=== PATIENT | male | born 1950 | race Caucasian/White ===

== ENCOUNTER 2018-12-25 08:34 | Emergency (ER) | payer BC, MEDICARE ==
--- NOTE | 2018-12-25 09:34 | RAD ---
ONE VIEW CHEST: History: Chest pain Comparison: None. FINDINGS: Normal cardiac silhouette. Pulmonary vessels and hilum are normal. Costophrenic angles are clear. No masses or consolidation. Calcified granuloma of the right midlung. No pneumothorax or osseous abnorma lities. IMPRESSION: No acute cardiopulmonary process. POS: H
[2018-12-25 10:17] LABS: #Basophils 0.1 thou/uL (0.0-0.2); #Eosinphils 0.1 thou/uL (0.0-0.7); #Lymphocytes 1.5 thou/uL (1.20-3.40); #Monocytes 0.6 thou/uL (0.11-0.59); #Neutrophils 5.6 thou/uL (1.40-6.50); %Basophils 0.8 % (0.0-1.0); %Eosinophils 0.7 % (0.0-10.0); %Lymphocytes 19.5 % (21.0-51.0); %Monocytes 7.1 % (0.0-10.0); %Neutrophils 71.8 % (42.0-75.0); Hemoglobin 14.8 g/dL (14.0-18.0); Mean Corpuscular HGB CONC 32.4 g/dL (32.0-36.0); Mean Corpuscular Hemoglobin 30.6 pg (27.0-31.0); Mean Corpuscular Volume 94.4 fL (78.0-98.0); Platelet Count 201 thou/uL (130-400); RBC Distribution Width 12.1 % (11.5-14.5); Red Blood Cell (RBC) Count 4.84 mill/uL (4.70-6.10); White Blood Cell (WBC) Count 7.8 thou/uL (4.8-10.8)
[2018-12-25 10:31] LABS: ALT (SGPT) 8 U/L (8-55); AST (SGOT) 13 U/L (5-34); Albumin 3.9 g/dL (3.4-4.8); Alkaline Phosphatase 49 U/L (40-150); Anion Gap 12 mmol/L (10-20); BUN (Urea Nitrogen) 18 mg/dL (8.4-25.7); Bilirubin, Total 0.5 mg/dL (0.2-1.2); CK (CPK) 30 U/L (30-200); Calc. Creatinine Clearance 0 mL/min (70-130); Calcium 9.5 mg/dL (7.8-10.44); Carbon Dioxide 26 mmol/L (23-31); Chloride 105 mmol/L (98-107); Estimated GFR-MDRD 81; Globulin 2.8 g/dL (2.4-3.5); Glucose 99 mg/dL (80-115); Lipase 24 U/L (8-78); Potassium 4.1 mmol/L (3.5-5.1); Protein, Total 6.7 g/dL (5.8-8.1); Sodium 139 mmol/L (136-145)
== END 2018-12-25 11:13 | disposition home or self-care (01) ==
LOC: ERS 08:34
DX: R07.89 Other chest pain (principal); Z87.891 Personal history of nicotine dependence
CPT/HCPCS: 36415; 71045; 80053; 82550; 83690; 84484; 85025; 93005; 94760

== ENCOUNTER 2021-04-03 15:50 | Inpatient (IN) | payer BC, MEDICARE ==
[2021-04-03] MEDS ORDERED: Sodium Bicarb 50 MEQ/50 ML Abboject 8.4% SYRINGE ONE ×2 (15:53→15:57)
[2021-04-03] MEDS ORDERED: EPINEPHrine 1 MG/10 ML Abboject SYRINGE ONE (15:53)
[2021-04-03] MEDS ORDERED: Aspirin 300 MG Suppository ONE (16:09)
[2021-04-03 16:12] LABS: #Basophils 0.1 thou/uL (0.0-0.2); #Eosinphils 0.1 thou/uL (0.0-0.7); #Lymphocytes 4.1 thou/uL (1.20-3.40); #Monocytes 0.7 thou/uL (0.11-0.59); #Neutrophils 6.7 thou/uL (1.40-6.50); %Basophils 0.5 % (0.0-1.0); %Eosinophils 0.7 % (0.0-10.0); %Lymphocytes 35.6 % (21.0-51.0); %Monocytes 5.6 % (0.0-10.0); %Neutrophils 57.6 % (42.0-75.0); Hemoglobin 15.9 g/dL (14.0-18.0); Mean Corpuscular HGB CONC 30.8 g/dL (32.0-36.0); Mean Corpuscular Hemoglobin 30.3 pg (27.0-31.0); Mean Corpuscular Volume 98.3 fL (78.0-98.0); Mean Platelet Volume 9.4 fL (7.4-10.4); Platelet Count 124 thou/uL (130-400); RBC Distribution Width 12.2 % (11.5-14.5); Red Blood Cell (RBC) Count 5.25 mill/uL (4.70-6.10); White Blood Cell (WBC) Count 11.6 thou/uL (4.8-10.8)
[2021-04-03 16:22] LABS: Actual Bicarbonate (HCO3a) 15.7 mEq/L (22-28); Analyzer IN Cardio ER; Base Excess (BEa) -12.2 mEq/L (-2.0 to +3.0); CO2 Tension 43.1 mmHg (35.0-45.0); Calcium, Ionized (arterial) 1.08 mmol/L (1.12-1.30); Carboxyhemoglobin (COHb) 0.2 gm% (0.0-3.0); Hemoglobin (Hb) 14.9 g/dL (14.0-18.0); O2 Tension (PaO2), arterial 460.3 mmHg (> 70.0); pH, Arterial 7.18 (7.35-7.45)
[2021-04-03 16:23] LABS: ALV-art Gradient 198.825 mmHg (0-20); Puncture Site RBA
[2021-04-03] MEDS ORDERED: Lidocaine 1% (PF) 30 ML VIAL ONE (16:26)
[2021-04-03 16:28] LABS: ALT (SGPT) 262 U/L (8-55); AST (SGOT) 262 U/L (5-34); Albumin 3.8 g/dL (3.4-4.8); Alkaline Phosphatase 72 U/L (40-110); Anion Gap 27 mmol/L (10-20); BUN (Urea Nitrogen) 17 mg/dL (8.4-25.7); Bilirubin, Total 0.6 mg/dL (0.2-1.2); Calc. Creatinine Clearance 0 mL/min (70-130); Carbon Dioxide 14 mmol/L (23-31); Chloride 104 mmol/L (98-107); Globulin 2.7 g/dL (2.4-3.5); Glucose 319 mg/dL (83-110); Potassium 3.3 mmol/L (3.5-5.1); Protein, Total 6.5 g/dL (5.8-8.1); Sodium 142 mmol/L (136-145)
[2021-04-03] MEDS ORDERED: Fentanyl 100 MCG/2 ML VIAL ONE (17:00)
[2021-04-03 17:01] LABS: Bilirubin Negative (Negative); Blood, Urine 2+ (Negative); Clarity Turbid (Clear); Glucose, Urine (Dipstick) Normal (Negative); Ketone, Urine Trace mg/dL (Negative); Leukocyte Negative Leu/uL (Negative); Mucous/LPF Rare LPF (<2+); Nitrite Negative (Negative); Protein, Urine (Dipstick) 100 mg/dL (Neg-Trace); RBC/HPF 21-50 HPF (0-3); Renal Epithelial 0-3 HPF (None Seen); Specific Gravity, Urine 1.028 (1.002-1.036); Squamous Epithelial 0-3 HPF (0-3); Urobilinogen Normal mg/dL (Less than 2); pH, Urine 5.5 (5.0-9.0)
[2021-04-03 17:07] LABS: Bacteria/HPF 1+ HPF (None Seen)
[2021-04-03] MEDS ORDERED: Heparin 10,000 UNITS/ 10 ML VIAL ONE (17:10)
[2021-04-03] MEDS ORDERED: Aspirin Chewable 81 MG TAB ONE ×3 (17:11→17:18)
[2021-04-03 17:34] LABS: SARS-CoV-2 NAA Rapid Test Not Detected (NotDetected)
[2021-04-03] MEDS ORDERED: Clopidogrel Bisulfate 300 MG TAB ONE (17:34)
[2021-04-03] MEDS ORDERED: Zolpidem Tartrate 5 MG TAB PO PRN (17:47)
[2021-04-03] MEDS ORDERED: Milk Of Magnesia 30 ML UDCUP PO PRN (17:47)
[2021-04-03] MEDS ORDERED: Nitroglycerin 0.4 MG TAB (25 Tab Bottle) SL PRN (17:47)
[2021-04-03] MEDS ORDERED: traMADol HCl 50 MG TAB PO PRN (17:47)
[2021-04-03] MEDS ORDERED: Mag-Al 1200 mg/1200 mg/30 ML UDCUP PO PRN (17:47)
[2021-04-03 18:36] LABS: Actual Bicarbonate (HCO3a) 22.1 mEq/L (22-28); Base Excess (BEa) -2.7 mEq/L (-2.0 to +3.0); CO2 Tension 38.7 mmHg (35.0-45.0); Calcium, Ionized (arterial) 1.03 mmol/L (1.12-1.30); Carboxyhemoglobin (COHb) 0.2 gm% (0.0-3.0); Hemoglobin (Hb) 14.3 g/dL (14.0-18.0); O2 Tension (PaO2), arterial 301.5 mmHg (> 70.0); pH, Arterial 7.38 (7.35-7.45)
[2021-04-03] MEDS ORDERED: Fentanyl BOLUS 250 ML IVPB PRN (18:45)
[2021-04-03] MEDS ORDERED: Fentanyl CADD 100 ML IV SCH (18:45)
[2021-04-03] MEDS ORDERED: Morphine 2 MG/ML VIAL SLOW IVP PRN (18:45)
[2021-04-03] MEDS ORDERED: DISCONTINUE PREVIOUS NARCOTIC PAIN MEDICATIONS AND BENZODIAZEPINES FS SCH (18:45)
[2021-04-03] MEDS ORDERED: Propofol BOLUS 1,000 MG/100 ML VIAL IV PRN (18:45)
[2021-04-03 19:03] LABS: Troponin I 3.106 ng/mL (< 0.028)
[2021-04-03 19:28] LABS: Lactic Acid 2.2 mmol/L (0.5-2.2)
[2021-04-03 19:45] LABS: ALV-art Gradient 149.225 mmHg (0-20); Puncture Site Arterial Line
[2021-04-03] MEDS: Sodium Chloride 0.9% 1,000 ML IV SCH (19:52)
[2021-04-03] MEDS: Propofol 1,000 MG/100 ML VIAL IV PRN (19:54)
[2021-04-03] MEDS: Atorvastatin Calcium 40 MG TAB PO SCH (20:31)
[2021-04-03] MEDS ORDERED: Metoprolol Tartrate 25 MG TAB PO SCH ×2 (21:00)
[2021-04-03] MEDS ORDERED: Metoprolol Tartrate 25 MG TAB PER TUBE SCH (21:00)
[2021-04-03] MEDS: Lorazepam 2 MG/ML VIAL SLOW IVP PRN (21:29)
[2021-04-03 21:39] LABS: Troponin I 22.469 ng/mL (< 0.028)
[2021-04-04 04:35] LABS: #Lymphocytes 0.8 thou/uL (1.20-3.40); #Monocytes 1.3 thou/uL (0.11-0.59); #Neutrophils 15.8 thou/uL (1.40-6.50); %Basophils 0.1 % (0.0-1.0); %Eosinophils 0.2 % (0.0-10.0); %Lymphocytes 4.5 % (21.0-51.0); %Monocytes 7.3 % (0.0-10.0); %Neutrophils 87.9 % (42.0-75.0); Hemoglobin 14.4 g/dL (14.0-18.0); Mean Corpuscular Hemoglobin 30.2 pg (27.0-31.0); Mean Corpuscular Volume 91.7 fL (78.0-98.0); Mean Platelet Volume 9.1 fL (7.4-10.4); Platelet Count 169 thou/uL (130-400); RBC Distribution Width 12.2 % (11.5-14.5); Red Blood Cell (RBC) Count 4.78 mill/uL (4.70-6.10)
[2021-04-04] MEDS: Propofol 1,000 MG/100 ML VIAL IV PRN (04:43)
[2021-04-04 04:48] LABS: Albumin 3.5 g/dL (3.4-4.8); Alkaline Phosphatase 48 U/L (40-110); Anion Gap 15 mmol/L (10-20); BUN (Urea Nitrogen) 25 mg/dL (8.4-25.7); Bilirubin, Total 0.6 mg/dL (0.2-1.2); Calc. Creatinine Clearance 44 mL/min (70-130); Calcium 8.3 mg/dL (7.8-10.44); Carbon Dioxide 21 mmol/L (23-31); Chloride 109 mmol/L (98-107); Cholesterol 157 mg/dl (< 200 Desired); Globulin 2.5 g/dL (2.4-3.5); Glucose 151 mg/dL (83-110); Potassium 3.6 mmol/L (3.5-5.1); Sodium 141 mmol/L (136-145)
[2021-04-04 04:49] LABS: ALT (SGPT) 418 U/L (8-55); AST (SGOT) 513 U/L (5-34); Cardiac Risk 2.4 (Less than 4.5); HDL Cholesterol 65 mg/dL (>60 Neg Risk); LDL Cholesterol, Calculated 78 mg/dL; Triglycerides 72 mg/dL (Less than 150)
[2021-04-04] MEDS: Sodium Chloride 0.9% 1,000 ML IV SCH ×2 (04:59→17:03)
[2021-04-04 07:12] LABS: Actual Bicarbonate (HCO3a) 22.2 mEq/L (22-28); Base Excess (BEa) -0.1 mEq/L (-2.0 to +3.0); CO2 Tension 29.9 mmHg (35.0-45.0); Calcium, Ionized (arterial) 1.02 mmol/L (1.12-1.30); Carboxyhemoglobin (COHb) 0.3 gm% (0.0-3.0); Hemoglobin (Hb) 14.3 g/dL (14.0-18.0); O2 Tension (PaO2), arterial 93.8 mmHg (> 70.0); Potassium - ABG Lab 3.29 mmol/L (3.70-5.30); pH, Arterial 7.49 (7.35-7.45)
[2021-04-04 07:14] LABS: Puncture Site Arterial Line
[2021-04-04 07:15] LABS: ALV-art Gradient 118.375 mmHg (0-20)
[2021-04-04] MEDS: Aspirin Chewable 81 MG TAB PO SCH (08:21)
[2021-04-04] MEDS: Clopidogrel Bisulfate 75 MG TAB PO SCH (08:21)
[2021-04-04] MEDS: Metoprolol Tartrate 25 MG TAB PER TUBE SCH ×2 (08:21→20:35)
[2021-04-04] MEDS ORDERED: Aspirin 300 MG Suppository PR SCH (09:00)
[2021-04-04] MEDS ORDERED: Clopidogrel Bisulfate 75 MG TAB PO SCH (09:00)
[2021-04-04 09:12] LABS: Troponin I 60.735 ng/mL (< 0.028)
[2021-04-04] MEDS ORDERED: Fentanyl CADD 100 ML ONE (19:29)
[2021-04-04] MEDS: Atorvastatin Calcium 40 MG TAB PO SCH (20:34)
[2021-04-05] MEDS: Sodium Chloride 0.9% 1,000 ML IV SCH ×2 (01:03→11:08)
[2021-04-05 04:05] LABS: ALT (SGPT) 263 U/L (8-55); AST (SGOT) 212 U/L (5-34); Albumin 3.1 g/dL (3.4-4.8); Alkaline Phosphatase 44 U/L (40-110); Anion Gap 14 mmol/L (10-20); BUN (Urea Nitrogen) 31 mg/dL (8.4-25.7); Calc. Creatinine Clearance 50 mL/min (70-130); Calcium 8.3 mg/dL (7.8-10.44); Carbon Dioxide 23 mmol/L (23-31); Chloride 110 mmol/L (98-107); Globulin 2.4 g/dL (2.4-3.5); Glucose 114 mg/dL (83-110); Potassium 3.7 mmol/L (3.5-5.1); Protein, Total 5.5 g/dL (5.8-8.1); Sodium 143 mmol/L (136-145)
[2021-04-05 04:16] LABS: Critical Call Chem Troponin I RESULT DECREASING
[2021-04-05] MEDS: Pantoprazole 40 MG VIAL IVP SCH (11:06)
[2021-04-05] MEDS: Enoxaparin Sodium 40 MG/0.4 ML SYRINGE SC SCH (11:07)
[2021-04-05] MEDS: Clopidogrel Bisulfate 75 MG TAB PO SCH (11:07)
[2021-04-05] MEDS: Aspirin Chewable 81 MG TAB PO SCH (11:07)
[2021-04-05] MEDS: Metoprolol Tartrate 25 MG TAB PER TUBE SCH ×2 (11:07→20:50)
[2021-04-05] MEDS ORDERED: Furosemide 40 MG/4 ML VIAL SLOW IVP SCH (16:45)
[2021-04-05] MEDS: Atorvastatin Calcium 40 MG TAB PO SCH (20:51)
[2021-04-06] MEDS ORDERED: Fentanyl CADD 100 ML ONE (00:17)
[2021-04-06] MEDS: Sodium Chloride 0.9% 1,000 ML IV SCH ×2 (00:19→13:30)
[2021-04-06 04:19] LABS: ALT (SGPT) 168 U/L (8-55); AST (SGOT) 107 U/L (5-34); Albumin 2.9 g/dL (3.4-4.8); Alkaline Phosphatase 44 U/L (40-110); Anion Gap 11 mmol/L (10-20); BUN (Urea Nitrogen) 41 mg/dL (8.4-25.7); Bilirubin, Total 0.8 mg/dL (0.2-1.2); Calc. Creatinine Clearance 52 mL/min (70-130); Calcium 8.1 mg/dL (7.8-10.44); Carbon Dioxide 26 mmol/L (23-31); Chloride 110 mmol/L (98-107); Globulin 2.4 g/dL (2.4-3.5); Glucose 115 mg/dL (83-110); Potassium 3.9 mmol/L (3.5-5.1); Protein, Total 5.3 g/dL (5.8-8.1); Sodium 143 mmol/L (136-145)
[2021-04-06 04:32] LABS: #Lymphocytes 2.2 thou/uL (1.20-3.40); #Monocytes 1.2 thou/uL (0.11-0.59); #Neutrophils 9.8 thou/uL (1.40-6.50); %Basophils 0.1 % (0.0-1.0); %Eosinophils 0.1 % (0.0-10.0); %Lymphocytes 16.6 % (21.0-51.0); %Monocytes 9.1 % (0.0-10.0); %Neutrophils 74.1 % (42.0-75.0); Hemoglobin 12.1 g/dL (14.0-18.0); Mean Corpuscular Hemoglobin 30.8 pg (27.0-31.0); Mean Corpuscular Volume 93.6 fL (78.0-98.0); Mean Platelet Volume 10.3 fL (7.4-10.4); Platelet Count 119 thou/uL (130-400); RBC Distribution Width 12.5 % (11.5-14.5); Red Blood Cell (RBC) Count 3.91 mill/uL (4.70-6.10); White Blood Cell (WBC) Count 13.2 thou/uL (4.8-10.8)
[2021-04-06 04:33] LABS: Platelet Morphology Comment Appears Decreased
[2021-04-06] MEDS: Morphine 2 MG/ML VIAL SLOW IVP PRN (04:40)
[2021-04-06 07:41] LABS: Actual Bicarbonate (HCO3a) 26.3 mEq/L (22-28); Base Excess (BEa) 2.3 mEq/L (-2.0 to +3.0); CO2 Tension 38.4 mmHg (35.0-45.0); Calcium, Ionized (arterial) 1.17 mmol/L (1.12-1.30); Hemoglobin (Hb) 12.4 g/dL (14.0-18.0); Potassium - ABG Lab 3.78 mmol/L (3.70-5.30); pH, Arterial 7.45 (7.35-7.45)
[2021-04-06 07:44] LABS: Puncture Site RBA
[2021-04-06] MEDS: Aspirin Chewable 81 MG TAB PO SCH (08:48)
[2021-04-06] MEDS: Clopidogrel Bisulfate 75 MG TAB PO SCH (08:48)
[2021-04-06] MEDS: Enoxaparin Sodium 40 MG/0.4 ML SYRINGE SC SCH (08:48)
[2021-04-06] MEDS: Cefepime 1 GM in Sodium Chloride 0.9% 100 ML IVPB SCH ×2 (08:48→20:26)
[2021-04-06] MEDS: Metoprolol Tartrate 25 MG TAB PER TUBE SCH ×2 (08:49→20:26)
[2021-04-06] MEDS: Pantoprazole 40 MG VIAL IVP SCH (08:50)
[2021-04-06] MEDS ORDERED: Magnevist 469MG/ML 20 ML VIAL ONE (09:10)
[2021-04-06] MEDS ORDERED: Acetaminophen 650 MG/20.3 ML UDCUP PO PRN (12:50)
[2021-04-06] MEDS: Atorvastatin Calcium 40 MG TAB PO SCH (20:26)
[2021-04-06] MEDS: Lorazepam 2 MG/ML VIAL SLOW IVP PRN (21:05)
[2021-04-07 02:46] VITALS: BMI 28.3
[2021-04-07] MEDS: Sodium Chloride 0.9% 1,000 ML IV SCH ×2 (03:11→18:28)
[2021-04-07 04:04] LABS: #Eosinphils 0.1 thou/uL (0.0-0.7); #Lymphocytes 1.6 thou/uL (1.20-3.40); #Monocytes 1.5 thou/uL (0.11-0.59); #Neutrophils 10.9 thou/uL (1.40-6.50); %Basophils 0.2 % (0.0-1.0); %Eosinophils 0.4 % (0.0-10.0); %Lymphocytes 11.5 % (21.0-51.0); %Monocytes 10.8 % (0.0-10.0); Hemoglobin 12.2 g/dL (14.0-18.0); Mean Corpuscular HGB CONC 32.9 g/dL (32.0-36.0); Mean Corpuscular Hemoglobin 30.8 pg (27.0-31.0); Mean Corpuscular Volume 93.8 fL (78.0-98.0); Mean Platelet Volume 10.5 fL (7.4-10.4); Platelet Count 129 thou/uL (130-400); RBC Distribution Width 12.1 % (11.5-14.5); Red Blood Cell (RBC) Count 3.96 mill/uL (4.70-6.10); White Blood Cell (WBC) Count 14.1 thou/uL (4.8-10.8)
[2021-04-07 04:48] LABS: ALT (SGPT) 120 U/L (8-55); AST (SGOT) 73 U/L (5-34); Alkaline Phosphatase 61 U/L (40-110); Anion Gap 12 mmol/L (10-20); BUN (Urea Nitrogen) 41 mg/dL (8.4-25.7); Bilirubin, Total 0.7 mg/dL (0.2-1.2); Calc. Creatinine Clearance 73 mL/min (70-130); Calcium 8.6 mg/dL (7.8-10.44); Carbon Dioxide 24 mmol/L (23-31); Chloride 113 mmol/L (98-107); Globulin 2.5 g/dL (2.4-3.5); Glucose 118 mg/dL (83-110); Potassium 3.7 mmol/L (3.5-5.1); Protein, Total 5.5 g/dL (5.8-8.1); Sodium 145 mmol/L (136-145)
[2021-04-07 07:28] LABS: Actual Bicarbonate (HCO3a) 29.6 mEq/L (22-28); Base Excess (BEa) 5.4 mEq/L (-2.0 to +3.0); CO2 Tension 41.6 mmHg (35.0-45.0); Calcium, Ionized (arterial) 1.19 mmol/L (1.12-1.30); Carboxyhemoglobin (COHb) 0.3 gm% (0.0-3.0); Hemoglobin (Hb) 11.8 g/dL (14.0-18.0); O2 Tension (PaO2), arterial 82.1 mmHg (> 70.0); Potassium - ABG Lab 3.52 mmol/L (3.70-5.30); pH, Arterial 7.47 (7.35-7.45)
[2021-04-07 07:34] LABS: Puncture Site RRA
[2021-04-07] MEDS: Aspirin Chewable 81 MG TAB PO SCH (08:53)
[2021-04-07] MEDS: Clopidogrel Bisulfate 75 MG TAB PO SCH (08:54)
[2021-04-07] MEDS: Cefepime 1 GM in Sodium Chloride 0.9% 100 ML IVPB SCH (08:54)
[2021-04-07] MEDS: Enoxaparin Sodium 40 MG/0.4 ML SYRINGE SC SCH (08:54)
[2021-04-07] MEDS: Metoprolol Tartrate 25 MG TAB PER TUBE SCH (08:54)
[2021-04-07] MEDS: Pantoprazole 40 MG VIAL IVP SCH (08:54)
[2021-04-07] MEDS: Morphine 2 MG/ML VIAL SLOW IVP PRN (13:05)
[2021-04-07] MEDS: Morphine 4 MG/ML VIAL SLOW IVP PRN ×8 (13:39→23:20)
[2021-04-07] MEDS: Lorazepam 2 MG/ML VIAL SLOW IVP PRN (18:28)
[2021-04-07] MEDS ORDERED: Acetaminophen 650 MG Suppository PR PRN (20:20)
[2021-04-08] MEDS: Morphine 4 MG/ML VIAL SLOW IVP PRN ×4 (01:52→07:43)
[2021-04-08 07:35] VITALS: BP 154/77; TEMP 99.2
[2021-04-08] MEDS: Sodium Chloride 0.9% 1,000 ML IV SCH (08:00)
== END 2021-04-08 09:21 | disposition expired | DRG 246 ==
LOC: ERS 15:50 → CCL 16:38 → CCU 16:54 → T4-B 04-07 17:12
PROVIDERS: ADMIT Internal Medicine Cardiovascular Disease; ATTEND Internal Medicine Cardiovascular Disease
PROC: 027034Z Dilation of Coronary Artery, One Artery with Drug-eluting Intraluminal Device, Percutaneous Approach (ICD-10-PCS; principal; 2021-04-03)
PROC: 02C03ZZ Extirpation of Matter from Coronary Artery, One Artery, Percutaneous Approach (ICD-10-PCS; 2021-04-03)
PROC: 0T9B70Z Drainage of Bladder with Drainage Device, Via Natural or Artificial Opening (ICD-10-PCS; 2021-04-03)
PROC: 5A1945Z Respiratory Ventilation, 24-96 Consecutive Hours (ICD-10-PCS; 2021-04-03)
PROC: 5A2204Z Restoration of Cardiac Rhythm, Single (ICD-10-PCS; 2021-04-03)
PROC: 0D9670Z Drainage of Stomach with Drainage Device, Via Natural or Artificial Opening (ICD-10-PCS; 2021-04-03)
PROC: B2111ZZ Fluoroscopy of Multiple Coronary Arteries using Low Osmolar Contrast (ICD-10-PCS; 2021-04-03)
DX: I21.19 ST elevation (STEMI) myocardial infarction involving other coronary artery of inferior wall (principal); J96.01 Acute respiratory failure with hypoxia; J69.0 Pneumonitis due to inhalation of food and vomit; I63.89 Other cerebral infarction; S22.32XA Fracture of one rib, left side, initial encounter for closed fracture; S22.31XA Fracture of one rib, right side, initial encounter for closed fracture; E87.2 Acidosis; I47.1 Supraventricular tachycardia; G93.1 Anoxic brain damage, not elsewhere classified; Z66 Do not resuscitate; Z20.822 Contact with and (suspected) exposure to COVID-19; I46.2 Cardiac arrest due to underlying cardiac condition; I49.01 Ventricular fibrillation; I48.91 Unspecified atrial fibrillation; E87.70 Fluid overload, unspecified; G93.89 Other specified disorders of brain; I25.10 Atherosclerotic heart disease of native coronary artery without angina pectoris; X58.XXXA Exposure to other specified factors, initial encounter; N18.9 Chronic kidney disease, unspecified; I45.4 Nonspecific intraventricular block; I12.9 Hypertensive chronic kidney disease with stage 1 through stage 4 chronic kidney disease, or unspecified chronic kidney disease; Z78.1 Physical restraint status; Z99.89 Dependence on other enabling machines and devices; Z87.891 Personal history of nicotine dependence
CPT/HCPCS: 0240U; 36415; 36416; 36600; 51702; 70553; 71045; 80053; 80061; 81003; 81015; 82805; 83605; 84484; 85025; 85347; 86850; 86900; 86901; 87040; 87086; 87149; 89220; 92941; 92950; 93005; 93010; 93306; 93454; 94002; 94003; 95712; 95819; 95957; 96374; 96375; A9579; C1874; C9113; C9606; J0171; J0692; J1644; J1650; J1940; J2001; J2060; J2270; J2704; J3010; J3490